=== PATIENT | female | born 1965 | race Asian ===

== ENCOUNTER → 2023-07-24 13:23 | Outpatient (REF) | payer OTHER, SELFPAY | LOC: RAD 13:23 | PROVIDERS: ATTENDING PHYSICIAN Family Medicine | DX: M65.4 Radial styloid tenosynovitis [de Quervain] (principal); M25.531 Pain in right wrist | CPT/HCPCS: 73120 ==

== ENCOUNTER → 2023-08-07 15:02 | Outpatient (REF) | payer OTHER, SELFPAY | LOC: WDC 15:02 | PROVIDERS: ATTENDING PHYSICIAN Family Medicine | DX: R92.8 Other abnormal and inconclusive findings on diagnostic imaging of breast (principal); Z12.31 Encounter for screening mammogram for malignant neoplasm of breast | CPT/HCPCS: 76642; 77063; 77067 ==

== ENCOUNTER → 2023-10-29 06:27 | Day surgery (SDC) | payer OTHER, SELFPAY | LOC: GI 06:27 | PROVIDERS: ATTENDING PHYSICIAN Specialist | DX: Z12.11 Encounter for screening for malignant neoplasm of colon (principal); K57.30 Diverticulosis of large intestine without perforation or abscess without bleeding; Z86.010 Personal history of colon polyps | CPT/HCPCS: G0105 ==

== ENCOUNTER → 2024-08-07 14:36 | Outpatient (REF) | payer OTHER, SELFPAY | LOC: WDC 14:36 | PROVIDERS: ATTENDING PHYSICIAN Family Medicine | DX: Z12.31 Encounter for screening mammogram for malignant neoplasm of breast (principal) | CPT/HCPCS: 77063; 77067 ==